=== PATIENT | female | born 2000 | race African-American/Black ===

== ENCOUNTER 2023-05-18 17:59 | Emergency (ER) | payer OTHER ==
[~2023-05-18] VITALS: Ht 170.2 cm; Wt 54.4 kg
[2023-05-18] MEDS ORDERED: SODIUM CHLORIDE 0.9% 1000ML 1,000 ML IV SCH (19:15)
[2023-05-18] MEDS ORDERED: IOPAMIDOL 370 MG/ML 100 ML INFUS..BTL INJ ONE (19:29)
[2023-05-18] MEDS ORDERED: SODIUM CHLORIDE 0.9% 1000ML 1,000 ML ONE (19:55)
[2023-05-18] MEDS ORDERED: CEFTRIAXONE 1 GM VIAL ONE (19:55)
[2023-05-18] MEDS ORDERED: ONDANSETRON HCL INJ 2MG/ML 2ML 2 MG/ML VIAL IV STA (20:12)
[2023-05-18] MEDS ORDERED: FAMOTIDINE 20 MG/2 ML VIAL IV STA (20:13)
[2023-05-18] MEDS ORDERED: KETOROLAC TROMETHAMINE 30 MG/ML VIAL IV STA (20:14)
[2023-05-18] MEDS ORDERED: AMOXICILLIN500 MG PO (21:13)
[2023-05-18] MEDS ORDERED: ONDANSETRON ODT4 MG PO (21:14)
[2023-05-18] MEDS ORDERED: IBUPROFEN600 MG PO (21:16)
[2023-05-18 21:35] VITALS: BP 130/84; PULSE 84; RESP 18; TEMP 98.4; O2SAT 97
== END 2023-05-18 21:25 | disposition home or self-care (01) ==
LOC: FSED 18:05
DX: K52.9 Noninfective gastroenteritis and colitis, unspecified (principal); R19.7 Diarrhea, unspecified; R11.2 Nausea with vomiting, unspecified
CPT/HCPCS: 74177; 80048; 80076; 81003; 81025; 85025; 99284; J0696; J1885; J2405; J7030; Q9967